=== PATIENT | female | born 1965 | race American Indian/Alaskan Native ===

== ENCOUNTER 2017-06-04 11:11 | Outpatient (CLI) | payer BC ==
--- NOTE | 2017-06-04 14:19 | Mammography Report ---
BILATERAL DIGITAL SCREENING MAMMOGRAM with CAD : 06/04/17 11:11:00 CLINICAL: Routine screening. COMPARISON:None. A prior mammogram from [facility] is not available. FINDINGS: The breasts are heterogeneously dense, which may obscure small masses. No mass, architectural distortion or suspicious calcifications. IMPRESSION: No mammographic evidence of malignancy. BI-RADS CATEGORY: 2 -- Benign RECOMMENDATION: Routine mammographic screening in one year. COMMENT: Patient follow-up letters are generated by our [employer] application.
== END 2017-06-04 11:12 | disposition home or self-care (01) ==
LOC: MAMMO 11:11
PROVIDERS: ATTEND Physician Assistant Medical
DX: Z12.31 Encounter for screening mammogram for malignant neoplasm of breast (principal)
CPT/HCPCS: 77067

== ENCOUNTER 2018-08-29 12:35 | Outpatient (CLI) | payer BC ==
--- NOTE | 2018-08-29 15:07 | Mammography Report ---
BILATERAL DIGITAL SCREENING MAMMOGRAM with CAD: 08/29/18 12:35:00 CLINICAL: Routine screening. COMPARISON:06/04/17 FINDINGS: The breasts are heterogeneously dense, which may obscure small masses. A left asymmetry on the MLO view requires additional imaging.No architectural distortion or suspicious calcifications.The right breast is negative. IMPRESSION: Left asymmetry requiring further workup. BI-RADS CATEGORY: 0 -- Additional Imaging Evaluation Required RECOMMENDATION: Recall for a left spot magnification MLO view and left breast ultrasound if needed. COMMENT: 1. Dense breast tissue, i.e., adenosis, fibrocystic changes, etc., may obscure an underlying neoplasm. 2. Approximately 10% of cancers are not detected with mammography. 3. A negative mammography report should not delay biopsy if a clinically suspicious mass is present. COMMENT: Patient follow-up letters are generated via our [employer] application.
== END 2018-08-29 12:36 | disposition home or self-care (01) ==
LOC: MAMMO 12:35
PROVIDERS: ATTEND Physician Assistant Medical
DX: Z12.31 Encounter for screening mammogram for malignant neoplasm of breast (principal)
CPT/HCPCS: 77067

== ENCOUNTER 2018-10-20 10:56 | Outpatient (CLI) | payer BC ==
--- NOTE | 2018-10-20 12:08 | Mammography Report ---
LEFT DIGITAL DIAGNOSTIC MAMMOGRAM, 10/20/2018 INDICATION: Recall for asymmetry. TECHNIQUE: Digital left mammographic imaging was performed. Magnification views were obtained. COMPARISON: 08/29/2018 FINDINGS: Breast Density: Heterogeneously dense. Additional left mammographic views were performed and are negative. Satisfactory effacement of asymme try. Entered benign punctate calcifications. IMPRESSION: No mammographic evidence of malignancy. BI-RADS Category 2: Benign. Recommend routine screening mammography in one year A "normal" or negative report should not discourage follow up or biopsy of a clinically significant f inding. A written summary of these findings will be mailed to the patient. The patient will be entered into a mammography reporting system which will generate a reminder letter for the patient's next appointmen t at the appropriate interval. FURTHER INFORMATION: According to the [employer], yearly mammograms are recommend ed starting at age 40 and continuing as long as a woman is in good health. Breast MRI is recommended for women with an approximately 20-25% or greater lifetime risk of breast cancer, including women wi th a strong family history of breast or ovarian cancer and women who have been treated for Hodgkin's disease. Signer Name: Kristopher Ramirez MD Signed: 10/20/2018 12:03 PM Workstation Name: [id number]
== END 2018-10-20 10:57 | disposition home or self-care (01) ==
LOC: US 10:56
PROVIDERS: ATTEND Family Medicine
DX: I34.0 Nonrheumatic mitral (valve) insufficiency (principal); R92.8 Other abnormal and inconclusive findings on diagnostic imaging of breast; I10 Essential (primary) hypertension
CPT/HCPCS: 93306